=== PATIENT | female | born 1980 | race African-American/Black ===

== ENCOUNTER 2022-07-22 14:53 | Emergency (ER) | payer OTHER ==
[~2022-07-22] VITALS: Ht 162.6 cm; Wt 84.5 kg
[~2022-07-22 14:53] MED LIST: NOCURR
[2022-07-22 15:45] VITALS: BP 147/84
[2022-07-22] MEDS ORDERED: PENI500T2 PO (16:52)
[2022-07-22] MEDS ORDERED: IBUP-1492 PO (16:53)
[2022-07-22] MEDS ORDERED: HYDR-4723 PO (16:54)
== END 2022-07-22 17:03 | disposition home or self-care (01) ==
LOC: EMS 14:53
DX: K04.7 Periapical abscess without sinus (principal)
CPT/HCPCS: 99283; Z7502